=== PATIENT | male | born 1945 | race Caucasian/White ===

== ENCOUNTER 2021-05-18 08:27 | Emergency (ER) | payer MEDICARE ==
[2021-05-18 08:37] VITALS: BP 192/97
[2021-05-18] MEDS ORDERED: LIDOCAINE 2% URO-JET 5 ML SYRINGE UR ONE (08:54)
[2021-05-18] MEDS ORDERED: LIDOCAINE 2% URO-JET 5 ML SYRINGE UR STA (09:02)
--- NOTE | 2021-05-18 09:06 | ED Physician Documentation ---
History of Present Illness - Stated complaint Stated Complaint: MALE - Chief complaint Chief Complaint: General - History obtained from History obtained from: Patient - History of Present Illness Timing: Today Pain level max: 5 Pain level now: 5 - Additonal information Additional information: 76-year-old male presents to the emergency department stating that he had surgery 2 days ago, had urinary retention but did not want to keep the catheter in last night. He returns today for inability to urinate. Nothing makes it better or worse. Review of Systems Constitutional: denies: Fever, Chills Respiratory: denies: Cough GI: denies: Nausea, Vomiting, Diarrhea Musculoskeletal: denies: Neck pain, Back pain Neurologic: denies: Headache PD PAST MEDICAL HISTORY - Past Medical History Cardiovascular: Hypertension : Other - Past Surgical History Past Surgical History: Yes HEENT: Other - Present Medications Home Medications: Ambulatory Orders Medication Instructions Recorded Confirmed Losartan [Cozaar] 50 mg PO DAILY 05/17/21 05/17/21 oxyCODONE [Roxicodone] 5 mg PO PRN PRN 05/17/21 05/17/21 - Allergies Allergies/Adverse Reactions: Allergies Allergy/AdvReac Type Severity Reaction Status Date / Time No Known Drug Allergies Allergy Verified 05/18/21 08:33 - Social History Does the pt smoke?: No Smoking Status: Never smoker Does the pt drink ETOH?: Yes Does the pt have substance abuse?: No - Immunizations Immunizations are current?: Yes PD ED PE NORMAL - Vitals Vital signs reviewed: Yes - General General: Alert and oriented X 3, No acute distress - HEENT HEENT: Moist mucous membranes - Neck Neck: Supple, no meningeal sign - Cardiac Cardiac: RRR - Respiratory Respiratory: No respiratory distress, Clear bilaterally - Abdomen Abdomen: Soft, Non tender, Non distended - Derm Derm: Warm and dry - Neuro Neuro: Alert and oriented X 3 Results - Vitals Vitals: Vital Signs - 24 hr 05/18/21 08:31 Temperature 36.4 C L Heart Rate 70 Respiratory 16 Rate Blood Pressure 192/97 H O2 Saturation 95 Oxygen O2 Source Room air PD MEDICAL DECISION MAKING - ED course Complexity details: considered differential, d/w patient ED course: Thomas catheter placed. Approximately 1 L of urine drained. Thomas catheter will be left in place. Patient will follow up with his doctor on Thursday or Thursday for removal. Urinary retention likely secondary to anesthesia. Patient counseled regarding signs and symptoms for which I believe and urgent re- evaluation would be necessary. Patient with good understanding of and agreement to plan and is comfortable going home at this time This document was made in part using voice recognition software. While efforts are made to proofread this document, sound alike and grammatical errors may occur. Departure - Departure Disposition: Home, Self Care Clinical Impression: Urinary retention Condition: Good Instructions: ED Catheter Care Thomas Follow-Up: GRACIELA COLINDRES PA [Primary Care Provider] - Within 3 Days Comments: Follow-up with your doctor on Thursday or Thursday to have the Thomas catheter removed. Do not try to remove the catheter yourself as there is a balloon on the end to keep the catheter in place. Return if you worsen.
== END 2021-05-18 09:30 | disposition home or self-care (01) ==
LOC: ED 08:27
DX: R33.9 Retention of urine, unspecified (principal); Z98.890 Other specified postprocedural states
CPT/HCPCS: 51702; 99282; 99283

== ENCOUNTER 2021-05-20 11:30 | Emergency (ER) | payer MEDICARE ==
--- NOTE | 2021-05-20 11:54 | ED Physician Documentation ---
History of Present Illness - Stated complaint Stated Complaint: CATH REMOVAL - Chief complaint Chief Complaint: General - History obtained from History obtained from: Patient - Additonal information Additional information: He had facial surgery and subsequently developed postoperative urinary retention. He was initially here on the eighth with urinary retention but declined home-going Thomas catheter at the time and then returned to the ninth for ongoing urinary retention and a indwelling Thomas was placed and presents today to have it removed. Review of Systems Constitutional: denies: Fever, Chills Cardiac: reports: Reviewed and negative Respiratory: reports: Reviewed and negative PD PAST MEDICAL HISTORY - Past Medical History Cardiovascular: Hypertension : Other - Past Surgical History Past Surgical History: Yes HEENT: Other - Present Medications Home Medications: Ambulatory Orders Medication Instructions Recorded Confirmed Losartan [Cozaar] 50 mg PO DAILY 05/17/21 05/20/21 oxyCODONE [Roxicodone] 5 mg PO PRN PRN 05/17/21 05/20/21 Tamsulosin [Flomax] 0.4 mg PO DAILY #30 cap 05/20/21 - Allergies Allergies/Adverse Reactions: Allergies Allergy/AdvReac Type Severity Reaction Status Date / Time No Known Drug Allergies Allergy Verified 05/20/21 11:44 - Social History Does the pt smoke?: No Smoking Status: Never smoker Does the pt drink ETOH?: Yes Does the pt have substance abuse?: No - Immunizations Immunizations are current?: Yes PD ED PE NORMAL - Vitals Vital signs reviewed: Yes - General General: Alert and oriented X 3, No acute distress - Abdomen Abdomen: Normal bowel sounds, Soft, Non tender - Male Male : Other (Urine bag with slightly bloody urine and there is some Blood at the tip of the meatus) - Neuro Neuro: Alert and oriented X 3, Normal speech - Psych Psych: Normal mood, Normal affect Results - Vitals Vitals: Vital Signs - 24 hr 05/20/21 05/20/21 11:41 12:53 Temperature 36.4 C L 36.7 C Heart Rate 70 85 Respiratory 16 16 Rate Blood Pressure 202/97 H 205/109 H O2 Saturation 97 100 Oxygen O2 Source Room air PD MEDICAL DECISION MAKING - ED course ED course: Thomas catheter removed and he is pending a voiding trial. He was able to void here and sent home with a prescription for Flomax. We discussed his blood pressure and he does have appropriate follow-up with his PCP for this. Departure - Departure Disposition: 01 Home, Self Care Clinical Impression: Encounter for Thomas catheter removal Condition: Good Record reviewed to determine appropriate education?: Yes Instructions: ED Retention Urinary Male Prescriptions: Tamsulosin [Flomax] 0.4 mg PO DAILY #30 cap Comments: I sent your prescription electronically to the [facility] pharmacy at the corner of [address] and [address] [id number] here in [place]. Your blood pressure was elevated today on check into the emergency department. This does not mean that you have hypertension, it is a common phenomenon to come to the emergency department and have elevated blood pressure. I recommend that you see your primary care physician within the week to have it rechecked when you are feeling better. Discharge Date/Time: 05/20/21 12:55
[2021-05-20 12:55] VITALS: BP 205/109
== END 2021-05-20 12:55 | disposition home or self-care (01) ==
LOC: ED 11:30
DX: Z46.6 Encounter for fitting and adjustment of urinary device (principal)
CPT/HCPCS: 99282; 99283

== ENCOUNTER 2021-05-20 21:04 | Emergency (ER) | payer MEDICARE ==
[2021-05-20] MEDS ORDERED: LIDOCAINE 2% URO-JET 5 ML SYRINGE UR STA (21:23)
--- NOTE | 2021-05-20 21:55 | ED Physician Documentation ---
PD HPI MALE - Stated complaint Stated Complaint: MALE - Chief complaint Chief Complaint: General - History obtained from History obtained from: Patient - History of Present Illness Timing - onset: Today Timing - duration: Hours Timing - details: Abrupt onset, Still present Associated symptoms: Unable to urinate PD HPI MALE CONTRIB FACTORS: Other (recent surgery with urinary retention) Similar symptoms before: Diagnosis (urinary retention) Recently seen: Emergency Dept - Additional information Additional information: 76-year-old Andrey Patino has gone up to [place] to have a Mohs procedure done on his nose by a plastic surgeon who removed some skin from behind his ear and put over his nose and following the procedure the patient had some urinary retention. He was seen here in the emergency department and his bladder was drained. Despite this he was unable to urinate again and had a catheter placed the next day and this was left in place for 2 days. He came into the emerge department earlier today for removal of the urinary catheter. He had been placed on Flomax. He took his first dose today. He denies any problem with the stream prior to this. On his most recent catheterization more than 1 L was drained from the bladder. The patient returns this evening unable to urinate. He has had a Thomas catheter placed now and is comfortable. He is not otherwise ill. Review of Systems Constitutional: denies: Fever Eyes: denies: Decreased vision Ears: denies: Ear pain Nose: denies: Congestion Throat: denies: Sore throat Cardiac: denies: Chest pain / pressure Respiratory: denies: Dyspnea, Cough GI: reports: Abdominal Pain. denies: Nausea, Vomiting : reports: Unable to Void PD PAST MEDICAL HISTORY - Past Medical History Past Medical History: Yes Cardiovascular: Hypertension : Retention, Indwelling catheter, Other - Past Surgical History Past Surgical History: Yes HEENT: Other - Present Medications Home Medications: Ambulatory Orders Medication Instructions Recorded Confirmed Losartan [Cozaar] 50 mg PO DAILY 05/17/21 05/20/21 oxyCODONE [Roxicodone] 5 mg PO PRN PRN 05/17/21 05/20/21 Tamsulosin [Flomax] 0.4 mg PO DAILY #30 cap 05/20/21 - Allergies Allergies/Adverse Reactions: Allergies Allergy/AdvReac Type Severity Reaction Status Date / Time No Known Drug Allergies Allergy Verified 05/20/21 21:07 - Social History Does the pt smoke?: No Smoking Status: Never smoker Does the pt drink ETOH?: Yes Does the pt have substance abuse?: No - Immunizations Immunizations are current?: Yes PD ED PE NORMAL - Vitals Vital signs reviewed: Yes (hypertensive ) - General General: Alert and oriented X 3, No acute distress, Well developed/nourished, Other (I have examined the patient after the RN placed the catheter) - HEENT HEENT: Atraumatic, PERRL, EOMI, Other (The surgical site appears to be healing well ) - Respiratory Respiratory: No respiratory distress - Back Back: No CVA TTP, No spinal TTP - Derm Derm: Normal color, Warm and dry, No rash - Extremities Extremities: No deformity, No edema - Neuro Neuro: Alert and oriented X 3, all round butcher 2-12 intact, No motor deficit, No sensory deficit, Normal speech Eye Opening: Spontaneous Motor: Obeys Commands Verbal: Oriented GCS Score: 15 - Psych Psych: Normal mood, Normal affect Results - Vitals Vitals: Vital Signs - 24 hr 05/20/21 05/20/21 21:07 22:07 Temperature 36.5 C 36.5 C Heart Rate 90 72 Respiratory 18 18 Rate Blood Pressure 180/90 H 150/80 H O2 Saturation 96 97 Oxygen O2 Source Room air PD MEDICAL DECISION MAKING - ED course Complexity details: reviewed old records, re-evaluated patient, considered differential, d/w patient ED course: Third visit for this male with urinary retention he is wanted to take his catheter out too soon. I encouraged patient to leave the catheter in for least week being that he had over a liter in his bladder on the last catheterization. Departure - Departure Disposition: 01 Home, Self Care Clinical Impression: Urinary retention Condition: Stable Instructions: ED Catheter Care William, BRANDIE Retention Urinary Male Follow-Up: GRACIELA COLINDRES PA [Primary Care Provider] - Comments: Andrey, today looks like you have acute urinary retention and in review of the record it looks like there was more than 1 L of urine in your bladder when you were catheter was placed last. This indicates that it will likely take about a week for the bladder to begin to work normally. Check the urine frequently for discoloration or cloudiness. This is an indication or infection and a reason for urgent follow up. Otherwise follow up with your primary care doctor next week for a voiding trial. Discharge Date/Time: 05/20/21 22:07
[2021-05-20 22:09] VITALS: BP 150/80
== END 2021-05-20 22:07 | disposition home or self-care (01) ==
LOC: ED 21:04
DX: Z46.6 Encounter for fitting and adjustment of urinary device (principal); R33.9 Retention of urine, unspecified
CPT/HCPCS: 51702; 51798; 99282; 99283

== ENCOUNTER 2022-12-29 09:05 | Emergency (ER) | payer MEDICARE ==
[2022-12-29 09:52] LABS: BILIRUBIN,URINE NEGATIVE (NEGATIVE); CLARITY,URINE CLEAR (CLEAR); GLUCOSE, URINE (UA) NEGATIVE (NEGATIVE); KETONES,URINE (UA) NEGATIVE (NEGATIVE); LEUKOCYTE ESTERASE, URINE NEGATIVE (NEGATIVE); NITRITE,URINE NEGATIVE (NEGATIVE); OCCULT BLOOD,URINE MODERATE (NEGATIVE); PROTEIN,URINE NEGATIVE (NEGATIVE); UROBILINOGEN,URINE 0.2 (NORMAL) E.U./dL (NORMAL)
--- NOTE | 2022-12-29 10:10 | ED Physician Documentation ---
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 At that time he retained more than a liter of urine and attempted to remove the catheter early resulting in a failure. He was started on Flomax at that time and he has discontinued this more than a year ago. He had a single follow-up with urology following that episode. He denies any urinary symptoms prior to the onset of this. He denies any difficulty in initiating his stream denies a weak stream will occasionally have double dribble. Denies any pain with the exception of this morning Review of Systems Constitutional: denies: Fever Eyes: denies: Decreased vision Ears: denies: Ear pain Nose: denies: Congestion Throat: denies: Sore throat Cardiac: denies: Chest pain / pressure, Palpitations Respiratory: denies: Dyspnea GI: reports: Abdominal Pain. denies: Nausea, Vomiting, Constipation, Diarrhea : reports: Unable to Void. denies: Dysuria, Frequency Skin: denies: Rash Musculoskeletal: denies: Neck pain, Back pain Neurologic: denies: Generalized weakness, Focal weakness, Numbness PD PAST MEDICAL HISTORY - Past Medical History Past Medical History: Yes Cardiovascular: Hypertension : Retention, Indwelling catheter, Other - Past Surgical History Past Surgical History: Yes HEENT: Other - Present Medications Home Medications: Ambulatory Orders Medication Instructions Recorded Confirmed Losartan [Cozaar] 50 mg PO DAILY 05/17/21 12/29/22 Tamsulosin [Flomax] 0.4 mg PO DAILY #30 cap 05/20/21 12/29/22 - Allergies Allergies/Adverse Reactions: Allergies Allergy/AdvReac Type Severity Reaction Status Date / Time No Known Drug Allergies Allergy Verified 12/29/22 09:13 - Social History Does the pt smoke?: No Smoking Status: Never smoker Does the pt drink ETOH?: Yes Does the pt have substance abuse?: No - Immunizations Immunizations are current?: Yes PD ED PE NORMAL - Vitals Vital signs reviewed: Yes (hypertensive) - General General: Alert and oriented X 3, No acute distress, Well developed/nourished - HEENT HEENT: Atraumatic, PERRL, EOMI - Neck Neck: Supple, no meningeal sign, No bony TTP - Cardiac Cardiac: RRR, No murmur - Respiratory Respiratory: No respiratory distress, Clear bilaterally - Abdomen Abdomen: Normal bowel sounds, Soft, Non tender, Non distended, No organomegaly - Back Back: No CVA TTP, No spinal TTP - Derm Derm: Normal color, Warm and dry, No rash - Extremities Extremities: No deformity, No edema - Neuro Neuro: Alert and oriented X 3, hot walker 2-12 intact, No motor deficit, No sensory deficit, Normal speech Eye Opening: Spontaneous Motor: Obeys Commands Verbal: Oriented GCS Score: 15 - Psych Psych: Normal mood, Normal affect Results - Vitals Vitals: Vital Signs - 24 hr 12/29/22 09:11 Temperature 36.4 C L Heart Rate 68 Respiratory 20 Rate Blood Pressure 202/95 H O2 Saturation 97 Oxygen O2 Source Room air - Labs Labs: Laboratory Tests 12/29/22 09:30 Urine Color YELLOW Urine Clarity CLEAR Urine pH 6.0 Ur Specific [place] 1.015 Urine Protein NEGATIVE Urine Glucose (UA) NEGATIVE Urine Ketones NEGATIVE Urine Occult Blood MODERATE H Urine Nitrite NEGATIVE Urine Bilirubin NEGATIVE Urine Urobilinogen 0.2 (NORMAL) Ur Leukocyte Esterase NEGATIVE Urine RBC 11-25 H Urine WBC 0-3 Ur Epithelial Cells FEW Transitional Ur Squamous Epith Cells RARE Squamous Urine Bacteria Rare Ur Microscopic Review INDICATED Urine Culture Comments NOT INDICATED PD Medical Decision Making - ED course Complexity details: reviewed old records, reviewed results, re-evaluated patient, considered differential, d/w patient ED course: 77-year-old male with acute urinary retention which appears unprovoked. The a Thomas catheter is placed prior to my arrival into the patient's room and when I evaluate the patient he is completely comfortable. More than a liter has drained out of his bladder. He has prior experience with early removal of catheter and I have encouraged the patient to leave the catheter in place until he follow-up with urology and I have asked the patient to restart his Flomax. Departure - Departure Disposition: 01 Home, Self Care Clinical Impression: Urinary retention Condition: Stable Instructions: ED Catheter Care Thomas, ED Retention Urinary Male Follow-Up: Darrion Coronado MD [Provider Admit Priv/Credential] - Comments: Andrey, today it looks like you have again urinary retention. We did not find evidence of infection in the urine. My recommendation is to restart your Flomax, leave the catheter in place and follow-up with Darrion Coronado the urologist here next week.
[2022-12-29 10:23] LABS: BACTERIA,URINE Rare /HPF (None Seen); EPITHELIAL CELLS,UR FEW Transitional /HPF (<= Few); SQUAMOUS EPITHELIAL CELL,UR RARE Squamous (<= Few); WBC,URINE 0-3 /HPF (0-3)
[2022-12-29 11:24] VITALS: BP 183/93; O2SAT 99
== END 2022-12-29 11:10 | disposition home or self-care (01) ==
LOC: ED 09:05
DX: R33.9 Retention of urine, unspecified (principal); T83.031A Leakage of indwelling urethral catheter, initial encounter; Y82.8 Other medical devices associated with adverse incidents
CPT/HCPCS: 51702; 81001; 81003; 87086; 99283

== ENCOUNTER 2022-12-29 18:58 | Emergency (ER) | payer MEDICARE ==
--- NOTE | 2022-12-29 20:01 | ED Physician Documentation ---
History of Present Illness - Stated complaint Stated Complaint: CATHETER ISSUE - Chief complaint Chief Complaint: General - History obtained from History obtained from: Patient - Additonal information Additional information: The pt comes to the ED with CC of urine leakage around catheter tip. Pt just had the catheter placed this morning for urinary retention. No fevers or blood per meatus. PD PAST MEDICAL HISTORY - Past Medical History Past Medical History: Yes Cardiovascular: Hypertension : Retention, Indwelling catheter, Other - Past Surgical History Past Surgical History: Yes HEENT: Other - Present Medications Home Medications: Ambulatory Orders Medication Instructions Recorded Confirmed Losartan [Cozaar] 50 mg PO DAILY 05/17/21 12/30/22 Phenazopyridine HCl [Pyridium] 100 mg PO TID PRN #15 tablet 12/30/22 Tolterodine [Detrol LA] 2 mg PO DAILY #10 cap 12/30/22 - Allergies Allergies/Adverse Reactions: Allergies Allergy/AdvReac Type Severity Reaction Status Date / Time No Known Drug Allergies Allergy Verified 12/30/22 13:02 - Social History Does the pt smoke?: No Smoking Status: Never smoker Does the pt drink ETOH?: Yes Does the pt have substance abuse?: No - Immunizations Immunizations are current?: Yes PD ED PE NORMAL - Vitals Vital signs reviewed: Yes - General General: Alert and oriented X 3, No acute distress, Well developed/nourished - HEENT HEENT: Atraumatic, EOMI, Moist mucous membranes - Neck Neck: Supple, no meningeal sign - Respiratory Respiratory: No respiratory distress - Abdomen Abdomen: Soft, Non tender, Non distended - Male Male : Grounds Keeper present, Other (Thomas catheter in place. No obvious leakage) - Derm Derm: Warm and dry - Extremities Extremities: No deformity - Neuro Neuro: Alert and oriented X 3 - Psych Psych: Normal mood, Normal affect Results - Vitals Vitals: Oxygen O2 Source Room air PD Medical Decision Making - ED course Complexity details: reviewed old records, considered differential, d/w patient ED course: The pt's catheter was replaced with the next size up. No leakage observed. We have discussed the need for follow up and the usual indications for return. Departure - Departure Disposition: 01 Home, Self Care Clinical Impression: Catheter (urine) change required Condition: Stable Instructions: ED Catheter Care Thomas Comments: Your Thomas catheter has been replaced this evening with a catheter 1 size larger than the one you had put in this morning. We have also adjusted the attachment point on your leg and hopefully, between these 2 things, you will not have any further leakage. Please follow-up with urology as planned. Be sure you drink plenty of fluids to keep your urine dilute and moving through your system so that you are less likely to form infection. Forms: PCP List Discharge Date/Time: 12/29/22 20:31
[2022-12-29 20:34] VITALS: BP 147/90; O2SAT 100
== END 2022-12-29 20:31 | disposition home or self-care (01) ==
LOC: ED 18:58
DX: T83.031A Leakage of indwelling urethral catheter, initial encounter (principal); Y82.8 Other medical devices associated with adverse incidents

== ENCOUNTER 2022-12-30 12:49 | Emergency (ER) | payer MEDICARE ==
[2022-12-30 13:06] VITALS: O2SAT 98
--- NOTE | 2022-12-30 13:38 | ED Physician Documentation ---
PD HPI MALE - Stated complaint Stated Complaint: LEAKING CATHETER - Chief complaint Chief Complaint: General - History obtained from History obtained from: Patient - History of Present Illness Timing - onset: How many days ago (2) Timing - details: Abrupt onset, Intermittant Associated symptoms: Alejandro problem (He was having urinary retention 2 days ago and had a Alejandro catheter placed. It was leaking around it yesterday/last night without blood or clots and had a catheter replaced. It was draining well and still is but notes intermittent pains in the bladder area and leaking around the catheter.) PD PAST MEDICAL HISTORY - Past Medical History Past Medical History: Yes Cardiovascular: Hypertension : Retention, Indwelling catheter, Other - Past Surgical History Past Surgical History: Yes HEENT: Other - Present Medications Home Medications: Ambulatory Orders Medication Instructions Recorded Confirmed Losartan [Cozaar] 50 mg PO DAILY 05/17/21 12/30/22 Phenazopyridine HCl [Pyridium] 100 mg PO TID PRN #15 tablet 12/30/22 Tolterodine [Detrol LA] 2 mg PO DAILY #10 cap 12/30/22 - Allergies Allergies/Adverse Reactions: Allergies Allergy/AdvReac Type Severity Reaction Status Date / Time No Known Drug Allergies Allergy Verified 12/30/22 13:02 - Social History Does the pt smoke?: No Smoking Status: Never smoker Does the pt drink ETOH?: Yes Does the pt have substance abuse?: No - Immunizations Immunizations are current?: Yes PD ED PE NORMAL - Vitals Vital signs reviewed: Yes - General General: Alert and oriented X 3, No acute distress, Well developed/nourished - Abdomen Abdomen: Normal bowel sounds, Soft, Non tender, Non distended - Male Male : Other (alejandro in place with good drainage. ) Results - Vitals Vitals: Vital Signs - 24 hr 12/30/22 12/30/22 12:57 15:34 Temperature 36.4 C L Heart Rate 71 67 Respiratory 14 16 Rate Blood Pressure 176/93 H 170/89 H O2 Saturation 98 98 Oxygen O2 Source Room air PD Medical Decision Making - ED course Complexity details: re-evaluated patient, considered differential (It sounds like he is having bladder spasms causing urine around the catheter as well as through. It is draining otherwise. No noted clots. We can try an antispasmodic. Otherwise flush the catheter now and if no clots give him the op tion of removal or keeping it.), d/w patient Departure - Departure Disposition: 01 Home, Self Care Clinical Impression: Alejandro catheter problem Condition: Stable Prescriptions: Tolterodine [Detrol LA] 2 mg PO DAILY #10 cap Phenazopyridine HCl [Pyridium] 100 mg PO TID PRN #15 tablet PRN Reason: Abdominal Pain Comments: I reviewed the Alejandro catheter placement nursing notes initially and it comments on over 1000 mL out with 700 mL initially but then a few more 100 mL over the next half hour. This would have led to reasonable stretching of the bladder and it may need a little bit more time for conditioning. As such it may be reasonable to keep the catheter in for now. Your symptoms that you are having may relate to spasming due to irritation of the bladder and the catheter. We can try to help this with a medication to numb the inside of the bladder called phenazopyridine and also an antispasmodic for the bladder called Detrol. I sent prescriptions for these to your pharmacy. See if this will help on the symptoms. Follow-up with your urologist if you have 1 and if not I provided the name of a local urologist. Follow-up over the next few days or early next week if the earliest is that. Return as needed. Forms: PCP List Discharge Date/Time: 12/30/22 15:47
[2022-12-30] MEDS ORDERED: SOLIFENACIN SUCCINATE 5 MG TABLET PO STA (14:01)
[2022-12-30 15:39] VITALS: BP 170/89
== END 2022-12-30 15:47 | disposition home or self-care (01) ==
LOC: ED 12:49
DX: T83.031A Leakage of indwelling urethral catheter, initial encounter (principal); Y82.8 Other medical devices associated with adverse incidents
CPT/HCPCS: 51700; 99283

== ENCOUNTER 2023-02-06 20:50 | Emergency (ER) | payer MEDICARE ==
[2023-02-06 21:18] VITALS: BP 188/87; O2SAT 100
[2023-02-06 21:21] LABS: BILIRUBIN,URINE NEGATIVE (NEGATIVE); GLUCOSE, URINE (UA) NEGATIVE (NEGATIVE); KETONES,URINE (UA) NEGATIVE (NEGATIVE); LEUKOCYTE ESTERASE, URINE MODERATE (NEGATIVE); NITRITE,URINE POSITIVE (NEGATIVE); OCCULT BLOOD,URINE LARGE (NEGATIVE); PH,URINE 6.5 PH (5.0-7.5); PROTEIN,URINE 100 mg/dL (NEGATIVE); UROBILINOGEN,URINE 0.2 (NORMAL) E.U./dL (NORMAL)
[2023-02-06 21:36] LABS: CLARITY,URINE CLOUDY (CLEAR)
[2023-02-06 21:40] LABS: BACTERIA,URINE Few /HPF (None Seen); RBC,URINE TNTC /HPF (0-5); SQUAMOUS EPITHELIAL CELL,UR FEW Squamous (<= Few)
[2023-02-06] MEDS ORDERED: CIPROFLOXACIN 250 MG TABLET PO STA (22:55)
--- NOTE | 2023-02-06 22:57 | ED Physician Documentation ---
PD HPI MALE - Stated complaint Stated Complaint: CATHETER ISSUE - Chief complaint Chief Complaint: Abd Pain - History obtained from History obtained from: Patient - Additional information Additional information: 78-year-old gentleman with bladder stones and BPH has an indwelling Thomas for the last month. This evening started develop bladder spasms and increased sediment in the bag with a fever earlier this week. PD PAST MEDICAL HISTORY - Past Medical History Past Medical History: Yes Cardiovascular: Hypertension : Retention, Indwelling catheter, Other - Past Surgical History Past Surgical History: Yes HEENT: Other - Present Medications Home Medications: Ambulatory Orders Medication Instructions Recorded Confirmed Losartan [Cozaar] 50 mg PO DAILY 05/17/21 12/30/22 Phenazopyridine HCl [Pyridium] 100 mg PO TID PRN #15 tablet 12/30/22 Tolterodine [Detrol LA] 2 mg PO DAILY #10 cap 12/30/22 Ciprofloxacin HCl [Cipro] 500 mg PO BID #20 tablet 02/06/23 - Allergies Allergies/Adverse Reactions: Allergies Allergy/AdvReac Type Severity Reaction Status Date / Time No Known Drug Allergies Allergy Verified 02/06/23 21:10 - Social History Does the pt smoke?: No Smoking Status: Never smoker Does the pt drink ETOH?: Yes Does the pt have substance abuse?: No - Immunizations Immunizations are current?: Yes - POLST Patient has POLST: No PD ED PE NORMAL - Vitals Vital signs reviewed: Yes - General General: Alert and oriented X 3 - Abdomen Abdomen: Other (Suprapubic tenderness) - Neuro Neuro: Alert and oriented X 3 Results - Vitals Vitals: Vital Signs - 24 hr 02/06/23 21:06 Temperature 36.9 C Heart Rate 73 Respiratory 16 Rate Blood Pressure 188/87 H O2 Saturation 100 Oxygen O2 Source Room air - Labs Labs: Laboratory Tests 02/06/23 21:12 Urine Color YELLOW Urine Clarity CLOUDY Urine pH 6.5 Ur Specific [place] 1.025 Urine Protein 100 H Urine Glucose (UA) NEGATIVE Urine Ketones NEGATIVE Urine Occult Blood LARGE H Urine Nitrite POSITIVE H Urine Bilirubin NEGATIVE Urine Urobilinogen 0.2 (NORMAL) Ur Leukocyte Esterase MODERATE H Urine RBC TNTC H Urine WBC 6-10 H Ur Squamous Epith Cells FEW Squamous Urine Bacteria Few Ur Microscopic Review INDICATED Urine Culture Comments INDICATED PD Medical Decision Making - ED course ED course: 78-year-old gentleman with CAUTI. Will change out catheter and started on Cipro. He has plans to visit a urologist which is very appropriate. Departure - Departure Disposition: 01 Home, Self Care Clinical Impression: Catheter-associated urinary tract infection Condition: Good Record reviewed to determine appropriate education?: Yes Instructions: ED UTI Cystitis Male Follow-Up: Darrion Coronado MD [Provider Admit Priv/Credential] - Prescriptions: Ciprofloxacin HCl [Cipro] 500 mg PO BID #20 tablet Comments: We will culture your urine, the results should be done in 48-72 hours. If an antibiotic change is necessary we will call you. Return if worse in the meantime, especially if you develop increasing flank pain, fevers, or cannot keep down the medication. I sent your prescription electronically to the [facility] in [place].
== END 2023-02-06 23:18 | disposition home or self-care (01) ==
LOC: ED 20:50
DX: T83.511A Infection and inflammatory reaction due to indwelling urethral catheter, initial encounter (principal); Y82.8 Other medical devices associated with adverse incidents
CPT/HCPCS: 51702; 81001; 87077; 87086; 87181; 99283; A9270; 81003

== ENCOUNTER 2023-02-25 07:51 | Emergency (ER) | payer MEDICARE ==
--- NOTE | 2023-02-25 09:49 | ED Physician Documentation ---
PD HPI MALE - Stated complaint Stated Complaint: C+CATH ISSUES - Chief complaint Chief Complaint: Abd Pain - History obtained from History obtained from: Patient - Additional information Additional information: Patient is a 78-year-old male presenting for evaluation of Thomas catheter not working since 6 PM yesterday. Patient has had a Thomas catheter in for several weeks and it started not working last night. He reports suprapubic discomfort and fullness. Denies fever. Is not currently on any antibiotics. Has an appointment with urology scheduled with [facility] today. Review of Systems Constitutional: denies: Fever : reports: Unable to Void PD PAST MEDICAL HISTORY - Past Medical History Past Medical History: Yes Cardiovascular: Hypertension : Retention, Indwelling catheter, Other - Past Surgical History Past Surgical History: Yes HEENT: Other - Present Medications Home Medications: Ambulatory Orders Medication Instructions Recorded Confirmed Losartan [Cozaar] 50 mg PO DAILY 05/17/21 12/30/22 Phenazopyridine HCl [Pyridium] 100 mg PO TID PRN #15 tablet 12/30/22 Tolterodine [Detrol LA] 2 mg PO DAILY #10 cap 12/30/22 Ciprofloxacin HCl [Cipro] 500 mg PO BID #20 tablet 02/06/23 - Allergies Allergies/Adverse Reactions: Allergies Allergy/AdvReac Type Severity Reaction Status Date / Time No Known Drug Allergies Allergy Verified 02/25/23 08:12 - Social History Does the pt smoke?: No Smoking Status: Never smoker Does the pt drink ETOH?: No Does the pt have substance abuse?: No - Immunizations Immunizations are current?: Yes - POLST Patient has POLST: No PD ED PE NORMAL - General General: Alert and oriented X 3, No acute distress, Well developed/nourished - HEENT HEENT: Atraumatic - Neck Neck: Supple, no meningeal sign - Cardiac Cardiac: RRR, Strong equal pulses - Respiratory Respiratory: No respiratory distress, Clear bilaterally - Abdomen Abdomen: Normal bowel sounds, Soft, Non distended, Other (Mild suprapubic fullness and tenderness which is resolved after Thomas catheter was flushed and is now draining) - Derm Derm: Warm and dry - Neuro Neuro: Normal speech Results - Vitals Vitals: Vital Signs - 24 hr 02/25/23 02/25/23 08:08 09:56 Temperature 36.1 C L Heart Rate 96 81 Respiratory 16 18 Rate Blood Pressure 173/100 H 112/76 O2 Saturation 97 98 Oxygen O2 Source Room air PD Medical Decision Making - ED course ED course: Patient here with Thomas catheter issue since last night. RN was able to flush and clear a clot from the catheter and clear urine is now draining from the catheter. Patient is feeling significantly better. He is scheduled to see urology today. Patient counseled on concerning symptoms to return for.No symptoms to suggest UTI. Departure - Departure Disposition: 01 Home, Self Care Clinical Impression: Thomas catheter problem Condition: Stable Instructions: ED Catheter Care Thomas Comments: Thomas catheter was not draining. We were able to clear a large clot and it is now working appropriately. Please continue to follow-up with urology. Return to the ER with any new or worsening symptoms. Forms: PCP List Discharge Date/Time: 02/25/23 09:57
[2023-02-25 09:57] VITALS: BP 112/76; O2SAT 98
== END 2023-02-25 09:57 | disposition home or self-care (01) ==
LOC: ED 07:51
DX: T83.098A Other mechanical complication of other urinary catheter, initial encounter (principal); R10.2 Pelvic and perineal pain; I10 Essential (primary) hypertension
CPT/HCPCS: 51700; 99283

== ENCOUNTER 2023-03-28 08:00 | Outpatient (CLI) | payer MEDICARE ==
[2023-03-28 12:59] LABS: BILIRUBIN,URINE NEGATIVE (NEGATIVE); GLUCOSE, URINE (UA) NEGATIVE (NEGATIVE); KETONES,URINE (UA) NEGATIVE (NEGATIVE); LEUKOCYTE ESTERASE, URINE LARGE (NEGATIVE); NITRITE,URINE POSITIVE (NEGATIVE); OCCULT BLOOD,URINE SMALL (NEGATIVE); PROTEIN,URINE 30 mg/dL (NEGATIVE); UROBILINOGEN,URINE 0.2 (NORMAL) E.U./dL (NORMAL)
[2023-03-28 13:25] LABS: CLARITY,URINE CLOUDY (CLEAR); WBC,URINE >25 /HPF (0-3)
[2023-03-28 13:32] LABS: BACTERIA,URINE Few /HPF (None Seen); SQUAMOUS EPITHELIAL CELL,UR NONE SEEN (<= Few)
== END 2023-03-28 23:59 | disposition home or self-care (01) ==
LOC: LAB.N 08:00
PROVIDERS: ATTEND Emergency Medicine
DX: R30.0 Dysuria (principal)
CPT/HCPCS: 81001; 87077; 87086; 87181